=== PATIENT | male | born 1975 | race Caucasian/White ===

== ENCOUNTER 2017-05-19 11:23 | Emergency (ER) | payer OTHER ==
[2017-05-19 11:52] VITALS: BP 159/101
--- NOTE | 2017-05-19 13:17 | Emergency Department Report ---
Entered by RHEA WEISS, acting as scribe for GABE DRIVER NP. ED Back Pain/Injury HPI - General Chief Complaint: Back Pain/Injury Stated Complaint: BACK PAIN Time Seen by Provider: 05/19/17 11:49 Source: patient Limitations: No Limitations - History of Present Illness Initial Comments: Pt is a 42 y.o. male with a several day hx of shooting bilateral lower back pain , L>R. 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 Pt denies taking anything at home for the pain. He denies bowel or bladder incontinence. No known injury or trauma. MD Complaint: back pain -: Gradual, days(s) (3) Similar Symptoms Previously: No Place: home Radiation: none Severity: moderate Quality: other (muscle spasms) Consistency: constant Improves With: none (no attemps tried ) Worsens With: none Associated Symptoms: denies other symptoms, other (Negative for bowel or bladder incontinence). denies: chest pain, difficulty walking, cough, difficulty urinating, fever/chills, abdominal pain, nausea/vomiting, shortness of breath - Related Data Previous Rx's Medication Instructions Recorded Last Taken Type Acetaminophen/Codeine [Tylenol #3] 1 tab PO Q6H PRN #12 tab 05/19/17 Unknown Rx Ibuprofen [Motrin] 600 mg PO Q8H PRN #15 tablet 05/19/17 Unknown Rx methOCARBAMOL [Robaxin TAB] 500 mg PO Q6H PRN #15 tablet 05/19/17 Unknown Rx Allergies Allergy/AdvReac Type Severity Reaction Status Date / Time No Known Allergies Allergy Unverified 05/19/17 11:52 ED Review of Systems Comment: All other systems reviewed and negative Constitutional: denies: chills, fever Eyes: denies: eye pain ENT: denies: ear pain, throat pain, dental pain Respiratory: denies: cough, shortness of breath, wheezing Cardiovascular: denies: chest pain, palpitations Gastrointestinal: other (Negative for bowel incontinence). denies: abdominal pain, nausea, vomiting, diarrhea, constipation Genitourinary: other (Negative for bladder incontinence). denies: urgency, dysuria, frequency, hematuria, discharge Musculoskeletal: back pain (lower). denies: joint swelling, arthralgia Skin: denies: rash, lesions, change in color Neurological: denies: headache, weakness, paresthesias ED Past Medical Hx - Past Medical History Previous Medical History?: No - Surgical History Past Surgical History?: No - Social History Smoking Status: Current Every Day Smoker Substance Use Type: None - Medications Home Medications: Home Medications Medication Instructions Recorded Confirmed Last Taken Type Acetaminophen/Codeine [Tylenol #3] 1 tab PO Q6H PRN #12 tab 05/19/17 Unknown Rx Ibuprofen [Motrin] 600 mg PO Q8H PRN #15 tablet 05/19/17 Unknown Rx methOCARBAMOL [Robaxin TAB] 500 mg PO Q6H PRN #15 tablet 05/19/17 Unknown Rx ED Physical Exam - General Limitations: No Limitations General appearance: alert, in no apparent distress - Head Head exam: Present: atraumatic, normocephalic - Eye Eye exam: Present: normal appearance, EOMI. Absent: scleral icterus Pupils: Present: normal accommodation - ENT ENT exam: Present: normal exam, normal orophraynx, mucous membranes moist, TM's normal bilaterally, normal external ear exam, other (Nose: Normal external appearance) - Neck Neck exam: Present: normal inspection, full ROM. Absent: tenderness, meningismus, thyromegaly - Respiratory Respiratory exam: Present: normal lung sounds bilaterally, other (Normal work of breathing. CTAB. ). Absent: respiratory distress, wheezes, rales, rhonchi, chest wall tenderness, accessory muscle use, decreased breath sounds - Cardiovascular Cardiovascular Exam: Present: regular rate, normal rhythm, normal heart sounds. Absent: systolic murmur, diastolic murmur, rubs, gallop - GI/Abdominal GI/Abdominal exam: Present: soft, normal bowel sounds. Absent: distended, tenderness, guarding, rebound, rigid - Extremities Exam Extremities exam: Present: normal inspection, full ROM, normal capillary refill. Absent: tenderness, pedal edema - Back Exam Back exam: Present: normal inspection, full ROM, other (pt reports pain across his low back, but no point tenderness ). Absent: tenderness, CVA tenderness (R) , CVA tenderness (L), muscle spasm, paraspinal tenderness, vertebral tenderness , rash noted - Neurological Exam Neurological exam: Present: alert, oriented X3 - Psychiatric Psychiatric exam: Present: normal affect, normal mood - Skin Skin exam: Present: warm, dry, intact, normal color. Absent: rash, cyanosis, diaphoretic, pallor, abrasion, ecchymosis ED Course Vital Signs 05/19/17 11:50 Temperature 97.9 F Pulse Rate 85 Respiratory 18 Rate Blood Pressure 159/101 O2 Sat by Pulse 97 Oximetry - Reevaluation(s) Reevaluation #1: 05/19/17 12:55 PT aware of dx and plan of care. PT has no questions at this time. - Pulse Oximetry Interpretation Digit-Finger Initial Pulse Oximetry Readin Actions Taken: none ED Medical Decision Making - Differential Diagnosis strain Critical Care Time: No ED Disposition Clinical Impression: Low back strain Qualifiers: Encounter type: initial encounter Qualified Code(s): S39.012A - Strain of muscle, fascia and tendon of lower back, initial encounter Disposition: TO HOME OR SELFCARE Is pt being admited?: No Does the pt Need Aspirin: No Condition: Stable Instructions: Muscle Strain (ED), Low Back Strain (ED), Acute Low Back Pain (ED ) Additional Instructions: No driving or alcohol after taking Tylenol #3 or Robaxin Follow up with PCP in 3-5 days Have your bp rechecked at follow up Return to ED if worsening or concerns Prescriptions: Acetaminophen/Codeine [Tylenol #3] 1 tab PO Q6H PRN #12 tab PRN Reason: Pain , Severe (7-10) Ibuprofen [Motrin] 600 mg PO Q8H PRN #15 tablet PRN Reason: Pain methOCARBAMOL [Robaxin TAB] 500 mg PO Q6H PRN #15 tablet PRN Reason: Muscle Spasm Referrals: RADHA MERRILL MD [Referring] - 3-5 Days Time of Disposition: 12:56 This documentation as recorded by the ISELA terry KELLY,accurately reflects the service I personally performed and the decisions made by ,GABE DRIVER , [employer]OGRAPHIC COMPUTATOR.
== END 2017-05-19 13:34 | disposition home or self-care (01) ==
LOC: ED 11:23
DX: S39.012A Strain of muscle, fascia and tendon of lower back, initial encounter (principal); F17.200 Nicotine dependence, unspecified, uncomplicated; X58.XXXA Exposure to other specified factors, initial encounter; Y93.89 Activity, other specified; Y99.9 Unspecified external cause status; Y92.89 Other specified places as the place of occurrence of the external cause
CPT/HCPCS: 99282